=== PATIENT | female | born 1940 | race Caucasian/White ===

== ENCOUNTER 2019-06-08 07:25 | Outpatient (CLI) | payer MEDICARE, SELFPAY ==
--- NOTE | ~2019-06-08 | MR_ITS ---
EXAMINATION: MR hip LT wo con, MR hip RT wo con DATE: 06/08/2019 09:22 INDICATION: Abnormality of gait. Bilateral hip pain. TECHNIQUE: 1. Magnetic resonance imaging (MRI) of the left hip was performed without intravenous contrast. Seque nces included full-field axial PD-weighted FS FSE and T1-weighted FSE, coronal of the pelvis with PD- weighted FS FSE, small field of view of the left hip with axial PD-weighted FS FSE, sagittal PD-weig hted FS FSE and coronal PD weighted FS FSE. Additional radial T1-weighted FGR oriented orthogonal to the acetabular rim were obtained for evaluation of the labrum. 2. MRI of the right hip was performed without intravenous contrast. Sequences included small field of view of the right hip with axial PD-weighted FS FSE, sagittal PD-weighted FS FSE and coronal PD weig hted FS FSE. Additional radial T1-weighted FGR oriented orthogonal to the acetabular rim were obtaine d for evaluation of the labrum. COMPARISON: Left hip radiographs dated 11/26/2010 FINDINGS: Bones/labrum/cartilage: Metallic magnetic field artifact associated with instrumentation for L4-S1 anterior spinal fusion. Pk ne marrow signal is normal with no fracture, avascular necrosis or pathologic marrow replacing proces s. Relatively symmetric mild bilateral hip osteoarthritis. There is a tear at the base of the anteros uperior left acetabular labrum with more severe degenerative tearing with macerated appearance at the superolateral to posterior superior left labrum and 4 mm paralabral cyst at the 11:30 position. Alondra lar small tear at the anterosuperior right acetabular labrum with small tear along the posterior supe rior right labrum. Fluid: Symmetric physiologic amount of fluid within both hip joints. Mild right-sided gluteus medius bursiti s. Soft tissues: No asymmetric muscular atrophy or abnormal muscle signal in the pelvis and proximal thighs. The iliop soas and gluteal tendons are normal. Mild enthesopathy at the ischial tuberosity origins of the bilat eral proximal hamstring tendons. Multiple diverticula along the sigmoid and visualized descending col on without adjacent inflammatory change to suggest diverticulitis. Foci of susceptibility artifact al varghese the tip of the cecum likely related to prior appendectomy. The uterus is not identified and has l ikely been surgically resected. No pathologically enlarged pelvic/inguinal lymphadenopathy. IMPRESSION: 1. Mild bilateral hip osteoarthritis and bilateral labral tears more severe on the left where there i s a macerated appearance to the superolateral to posterior superior labrum. 2. Mild right gluteus medius medius bursitis. Reviewed, dictated and finalized at location A. IMPRESSION: 1. Mild bilateral hip osteoarthritis and bilateral labral tears more severe on the left where there is a macerated appearance to the superolateral to posterio r superior labrum. 2. Mild right gluteus medius medius bursitis.
== END 2019-06-08 07:26 | disposition home or self-care (01) ==
PROVIDERS: PCP Internal Medicine Endocrinology, Diabetes & Metabolism; Visit Provider Psychiatry & Neurology Neurology
DX: R26.9 Unspecified abnormalities of gait and mobility (principal); M16.0 Bilateral primary osteoarthritis of hip; S73.191A Other sprain of right hip, initial encounter; S73.192A Other sprain of left hip, initial encounter; M71.551 Other bursitis, not elsewhere classified, right hip
CPT/HCPCS: 73721

== ENCOUNTER 2019-06-10 07:24 | Outpatient (CLI) | payer MEDICARE, SELFPAY ==
--- NOTE | ~2019-06-10 | MR_ITS ---
EXAMINATION: MR lumbar spine wo con, MR thoracic spine wo con DATE: 06/10/2019 09:52 INDICATION: Abnormality of gait. TECHNIQUE: 1. Magnetic resonance imaging (MRI) of the thoracic spine was performed without intravenous contrast. Sagittal localizer T1-weighted FSE of the cervicothoracic spine was obtained. Thoracic spine sequenc es included sagittal T2-weighted FSE, sagittal T1-weighted SE, Sagittal T2-weighted FS FSE, and axial T2-weighted FSE. 2. MRI of the lumbar spine was performed without intravenous contrast. Sequences included sagittal T2 -weighted FSE, sagittal T2-weighted FS FSE, sagittal T1-weighted FSE, and axial T2-weighted FSE. COMPARISON: None FINDINGS: Thoracic spine: Mild thoracic dextrocurvature. Sagittal alignment is normal. Chronic T12 compression fracture with 40 % anterior vertebral body height loss. Mild to moderate left-sided predominant disc height loss at T6 -T7 and T7-T8. Mild disc height loss at the remaining thoracic levels between T2-T3 and T10-T11. Harlan tional mild disc height loss at T12-L1 with fibrofatty degenerative endplate changes anteriorly at balwinder th sides of the disc space. Marrow signal is otherwise normal. Small left subarticular zone disc prot rusion at T3-T4 and minimal diffuse disc bulge at T10-T11 with no significant central canal stenosis. Diffuse disc bulges and hypertrophy of ligamentum flavum at T11-T12 and T12-L1 resulting in mild enrique tral canal stenosis at both levels as will be further detailed below. Moderate multilevel thoracic fa cet osteoarthritis resulting in mild neural foraminal stenosis at a few levels on both the left and r ight. There is normal signal in the spinal cord. Goiter. Paravertebral soft tissues are unremarkable. 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 Sacralized L5 segment with likely development ally decreased L5-S1 disc height with normal disc signal. Approximately 15 degrees lumbar levoscolios is measured between T12 and L4. L2-L5 anterior spinal fusion with interbody fusion devices at each of the disc spaces which appear solidly fused. Chronic L1 compression fracture with approximately 50% r ight anterior vertebral body height loss. Severe disc height loss and degenerative endplate changes a t L1-L2. The conus medullaris terminates at L1-L2. There is normal signal in the caudal spinal cord. Paravertebral soft tissues are unremarkable. The following disc levels are specifically discussed: T11-T12: Diffuse disc bulge. There is hypertrophy of the ligamentum flavum. There is moderate bilate ral facet joint osteoarthritis. There is mild right and minimal left neural foraminal stenosis. There is mild central canal stenosis. T12-L1: Disc is bulging. There is hypertrophy of the ligamentum flavum. There is moderate bilateral f acet joint osteoarthritis. There is mild bilateral neural foraminal stenosis. There is mild central c anal stenosis. L1-L2: Disc is bulging with annular fissure. There is hypertrophy of the ligamentum flavum. There is moderate right and moderate to severe left facet joint osteoarthritis. There is moderate left and mod erate to severe right neural foraminal stenosis. There is severe central canal stenosis measuring 8 m m in the mid sagittal plane but with effacement of the CSF signal surrounding the centrally clustered nerve roots. L2-L3: Disc space is fused. There is hypertrophy of the ligamentum flavum. There is moderate left fa cet joint osteoarthritis. The right facet joint is fused with moderate hypertrophic changes. There is minimal right neural foraminal stenosis. There is mild central canal stenosis. L3-L4: Disc space is fused. There is hypertrophy of the left ligamentum flavum with postoperative crystal nge of prior right hemilaminotomy. There is mild bilateral facet joint osteoarthritis. There is moder ate left and mild right neural foraminal stenosis. There is mild
== END 2019-06-10 07:25 | disposition home or self-care (01) ==
LOC: ANHIMG 07:26
PROVIDERS: PCP Internal Medicine Endocrinology, Diabetes & Metabolism; Visit Provider Psychiatry & Neurology Neurology
DX: R26.9 Unspecified abnormalities of gait and mobility (principal); E04.9 Nontoxic goiter, unspecified; Z98.1 Arthrodesis status
CPT/HCPCS: 72146; 72148